=== PATIENT | male | born 1995 | race Caucasian/White ===

== ENCOUNTER 2018-04-22 16:14 | Emergency (ER) | payer SELFPAY ==
[2018-04-22] MEDS: ACETAMINOPHEN 325 MG TAB PO (17:13)
[2018-04-22 17:38] LABS: KETONE, URINE AUTO RFX NEGATIVE (NEGATIVE); LEUKOCYTE ESTERASE UR AUTO RFX NEGATIVE (NEGATIVE); MUCUS, URINE RFX SMALL (NEGATIVE); NITRITE, URINE AUTO RFX NEGATIVE (NEGATIVE); RBC, URINE AUTO RFX 1 /HPF (0-3); SPECIFIC GRAVITY UR AUTO RFX 1.033 (1.002-1.035); SQUAM EPITHELIAL CELL UR AURFX 0 /HPF (0-6); WBC, URINE AUTO RFX 1 /HPF (0-3)
[2018-04-22 19:17] LABS: CHLAMYDIA DNA AMPLIFICATION NEGATIVE (NEGATIVE); GC DNA AMPLIFICATION NEGATIVE (NEGATIVE)
== END 2018-04-22 19:16 | disposition home or self-care (01) ==
LOC: M ED 16:14
DX: N50.3 Cyst of epididymis (principal); B35.6 Tinea cruris; F17.210 Nicotine dependence, cigarettes, uncomplicated
CPT/HCPCS: 76870